=== PATIENT | male | born 1975 | race Caucasian/White ===

== ENCOUNTER 2022-02-24 13:07 | Emergency (ER) | payer MEDICAID ==
[~2022-02-24] VITALS: Ht 177.8 cm; Wt 79.5 kg
[2022-02-24 14:36] LABS: BASOPHILS % (AUTO) 0.3 % (0-1); EOSINOPHILS % (AUTO) 0.3 % (0-6); HEMATOCRIT 44.9 % (42.0-52.0); HEMOGLOBIN 15.4 g/dl (14.0-17.9); LYMPHOCYTES # (AUTO) 1.6 X10'3 (1.1-4.8); LYMPHOCYTES % (AUTO) 15.7 % (21-51); MEAN CORPUSCULAR HEMOGLOBIN 33.2 PG (27.0-31.0); MEAN CORPUSCULAR HGB CONC 34.3 g/dL (33.0-36.5); MEAN CORPUSCULAR VOLUME 96.6 FL (78-98); MEAN PLATELET VOLUME 8.4 FL (7.4-10.4); MONOCYTES # (AUTO) 0.7 X10'3 (0-0.9); NEUTROPHILS # (AUTO) 7.6 X10'3 (1.8-7.7); NEUTROPHILS % (AUTO) 76.7 % (42-75); PLATELET COUNT 333 X10'3 (140-440); RED BLOOD COUNT 4.65 X10'6 (4.70-6.10); RED CELL DISTRIBUTION WIDTH 13.6 % (11.5-14.5); WHITE BLOOD COUNT 9.9 X10'3 (4.5-11.0)
[2022-02-24 14:47] LABS: ALANINE AMINOTRANSFERASE 32 U/L (12-78); ALBUMIN 4.1 G/DL (3.4-5.0); ALBUMIN/GLOBULIN RATIO 1.5 (1.1-1.5); ALKALINE PHOSPHATASE 101 IU/L (46-116); ANION GAP 8 (8-16); ASPARTATE AMINO TRANSFERASE 27 U/L (10-37); BILIRUBIN,TOTAL 0.9 MG/DL (0.1-1.0); BLOOD UREA NITROGEN 8 MG/DL (7-18); BUN/CREATININE RATIO 9.6 (5.4-32.0); CALCIUM 8.8 MG/DL (8.5-10.1); CHLORIDE 104 MMOL/L (99-107); CREATININE 0.83 MG/DL (0.60-1.10); GLUCOSE 112 MG/DL (70-104); POTASSIUM 4.7 MMOL/L (3.5-5.1); SODIUM 142 MMOL/L (135-145); TOTAL CARBON DIOXIDE 29.6 MMOL/L (24-32); TOTAL PROTEIN 6.9 G/DL (6.4-8.2); eGFR > 90 ML/MIN
[2022-02-24 14:55] LABS: ETHANOL < 0.010 GM/DL (0.0-0.010)
--- NOTE | 2022-02-24 15:26 | NUR ---
PT HAS GIVEN PERMISSION FOR HIS , DEVYN, TO RECEIVED INFORMATION REGARDING PTS VISIT. 'S CELL PHONE #: [phone]
--- NOTE | 2022-02-24 15:32 | NUR ---
PT'S BELONGINGS PLACED IN OF LOCKDER 23
[2022-02-24 15:39] LABS: URINE AMPHETAMINE SCREEN NEGATIVE (Neg); URINE BARBITUATE SCREEN NEGATIVE (Neg); URINE BENZODIAZEPINES SCREEN NEGATIVE (Neg); URINE CANNABINOID SCREEN NEGATIVE (Neg); URINE COCAINE SCREEN NEGATIVE (Neg); URINE METHADONE SCREEN NEGATIVE (Neg); URINE OPIATE SCREEN NEGATIVE (Neg); URINE PHENCYCLIDINE SCREEN NEGATIVE (Neg)
[2022-02-24] MEDS ORDERED: NO HOME MEDS (15:55)
[2022-02-24] MEDS ORDERED: gabapentin 400mg capsule PO STA (16:18)
[2022-02-24] MEDS ORDERED: pantoprazole 40mg Tablet.DR PO STA (16:18)
[2022-02-24] MEDS ORDERED: sucralfate 1 gm tablet PO ONE (16:20)
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
--- NOTE | 2022-02-24 19:25 | NUR ---
PTS LAST DRINK WAS 24 HOURS AGO.
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
[2022-02-24] MEDS ORDERED: LORazepam 1 MG tablet PO ONE (23:15)
--- NOTE | 2022-02-24 23:43 | NUR ---
Patient was given Ativan 1 mg PO for his anxiety and lack of sleep.
--- NOTE | 2022-02-25 00:38 | NUR ---
Patient looks to be sleeping. No distress. He is on his left side. In direct view from nurses station.
--- NOTE | 2022-02-25 01:20 | NUR ---
Patient is sleeping on his left side, in view from the nursing station.
--- NOTE | 2022-02-25 03:00 | NUR ---
Patient sleeping supine position. No distress.
--- NOTE | 2022-02-25 03:45 | NUR ---
Patient is sleeping quietly. No distress.
--- NOTE | 2022-02-25 04:22 | NUR ---
Patient remains sleeping on his left side. No distress.
--- NOTE | 2022-02-25 05:45 | NUR ---
Patient up to void. He then returns to sleep. He is cooperative.
[2022-02-25] MEDS ORDERED: sucralfate 1 gm tablet PO ONE (08:15)
[2022-02-25] MEDS ORDERED: pantoprazole 40mg Tablet.DR PO ONE (08:15)
--- NOTE | 2022-02-25 08:30 | NUR ---
Pt. c/o of stomach pain and given Carafat 1gm and Protonix 40mg po with good effect. Pt. eating breakfast at bedside.
--- NOTE | 2022-02-25 10:30 | NUR ---
Pt. awake and watching TV at bedside.
[2022-02-25] MEDS ORDERED: LORazepam 1 MG tablet PO ONE (11:15)
--- NOTE | 2022-02-25 11:26 | NUR ---
Pt. c/o of anxiety and given Ativan 1mg po
--- NOTE | 2022-02-25 13:30 | NUR ---
Pt. awoke from nap and eating lunch.
--- NOTE | 2022-02-25 15:30 | NUR ---
Pt. awake and drawing at bedside.
--- NOTE | 2022-02-25 17:01 | NUR ---
RN received phone call from Beatrice at [facility] office. Pt. has been accepted by [facility]. Accepting Doctor is Dr. Burnham. Transport set up for 7pm [facility]. Pt. informed and is agreeable to plan. Pt. called his to let her know of plan.
--- NOTE | 2022-02-25 19:30 | NUR ---
Patient lying in bed quietly watching TV.
--- NOTE | 2022-02-25 20:28 | NUR ---
[facility] picked arnulfo, security was able to escort them outside w/o any complications.
[2022-02-25 22:44] VITALS: BP 151/90
== END 2022-02-25 22:45 | disposition home or self-care (01) ==
LOC: ER 13:08
DX: R45.851 Suicidal ideations (principal); Z20.822 Contact with and (suspected) exposure to COVID-19; F10.129 Alcohol abuse with intoxication, unspecified; Y90.9 Presence of alcohol in blood, level not specified
CPT/HCPCS: 36415; 80053; 80305; 80320; 84443; 85025; 87811; 99285